=== PATIENT | male | born 1975 | race Caucasian/White ===

== ENCOUNTER 2020-02-24 06:12 | Inpatient (IN) ==
--- NOTE | 2020-02-06 16:14 | PAT Medication Instructions ---
Medication Instructions Date of Service February 06, 2020 Home Medications Medication Instructions Recorded rizatriptan 10 mg tablet 10 mg PO .COMPLEX #10 tab 12/15/18 rizatriptan 10 mg tablet 10 mg PO .COMPLEX ibuprofen 600 mg PO BID PRN ASK your surgeon for instructions ibuprofen 600 mg PO BID PRN Take morning of surgery With a small sip of water, OTHERWISE NOTHING TO EAT OR DRINK AFTER MIDNIGHT: rizatriptan 10 mg tablet 10 mg PO .COMPLEX (if needed) Other Notes If you have any questions please call us at [phone] or [phone] or [phone] or [phone]
--- NOTE | 2020-02-09 09:41 | Anesthesiology Consultation ---
Date of Service February 09, 2020 Assessment & Plan (1) Encounter for pre-operative examination: Per PAT assessment on 02/08: Travel screen- Lives in [facility]. Travel to [facility]. No known COVID-19 positive contacts. No current COVID-19 related symptoms. Patient scheduled for preop protocol COVID-19 testing 02/19 ([address]). Awaiting results. Chart Review Chart Review: Acceptable Risk for Surgery (pending surgeon-ordered PCP clearance scheduled 02/12 ([facility])) and Patient seen in Pre Admission Testing Teaching & Discussion Pre-Anesthesia Teaching/Discussion Notes: Instructed NPO after midnight before surgery,except medications with 15 cc of water. Medication instructions provided according to the PAT guidelines. History Surgery Operation Date: 02/24/20 07:45 Proposed Procedures p L5-S1 Decompression and Fusion, Spinal Cord Monitoring - Robbie Padilla DO Height/Weight Height: 6 ft Weight: 76.7 kg Allergies Allergy/AdvReac Type Severity Reaction Status Date / Time No Known Allergies Allergy Verified 02/02/20 08:32 Medications Home Medications Medication Instructions Recorded Confirmed Last Taken rizatriptan 10 mg tablet 10 mg PO .COMPLEX #10 tab 12/15/18 02/02/20 Unknown ibuprofen 600 mg PO BID PRN 02/02/20 02/02/20 Unknown Past Medical History Medical History Degenerative disc disease History of anxiety Migraine Exercise / Class Metabolic Activity II 4-5 Yardwork/Stairs/Walk up hill Past Family History Family History Grandmother Heart disease Denies family history of Ovarian cancer Prostate cancer Myocardial infarction Breast cancer Colorectal cancer Past Surgical History Surgical History H/O discectomy LUMBAR SPINE Hx of vasectomy S/P meniscectomy RT/LEFT [place] teeth removed Past Anesthesia History No Hx of Anesthesia Complications (except PONV with remote surgery) and No Family Hx of Anesthesia Complications History of PONV No Hx of Motion Sickness and History of PONV (x1 episode with remote surgery) Social History Smoking Status: Former smoker tobacco type: cigarettes Do You Dip or Chew Tobacco: No Smoking End Date: 1999 (SMOKED IN COLLEGE) Hx Alcohol Use: Yes Alcohol type: beer alcohol intake frequency: a few times a month Hx Substance Use: No Review of Systems Patient denies chest pain, shortness of breath, dyspnea on exertion, fever, chills, cough, wheezing, palpitations. Physical Exam Vital Signs VITALS BP 127/90 P 69 TEMP 98.4 SP02 100%RA RESP 16 PHYSICAL Full neck and c-spine range of motion. Full TMJ range of motion. TMD 3.5 finger breaths Mallampati Score 1 Dentition: intact, + crown on molar Lungs: clear throughout to auscultation Cardiac: regular rate and rhythm, no murmurs noted Spine: normal Carotid arteries: negative bruit Extremities: no edema Short, thick colbert- advised to trim (patient agreeable) Testing Laboratory Results 02/09/20 10:03 02/09/20 10:03 PT 10.6 Seconds (9.0-12.0) 02/09/20 10:03 INR 1.0 (0.9-1.1) 02/09/20 10:03 APTT 27.9 Seconds (21.0-31.0) 02/09/20 10:03 Urine Color Yellow 02/09/20 10:03 Urine Appearance Clear (Clear) 02/09/20 10:03 Urine pH 7.5 (4.5-7.5) 02/09/20 10:03 Ur Specific [place] 1.006 (1.000-1.030) 02/09/20 10:03 Urine Protein Negative (Negative) 02/09/20 10:03 Urine Glucose (UA) Negative (Negative) 02/09/20 10:03 Urine Ketones Negative (Negative) 02/09/20 10:03 Urine Nitrite Negative (Negative) 02/09/20 10:03 Ur Leukocyte Esterase Negative (Negative) 02/09/20 10:03 Blood Type O Positive 02/09/20 10:03 Antibody Screen NEGATIVE 02/09/20 10:03 Electrocardiogram Date: 02/09/20 SB at 59bpm. Possible LAE. unconfirmed report* Chest X-Ray Date: 02/09/20 Findings: + NAD
[2020-02-09 10:21] LABS: Basophils # (auto) 0.01 K/uL (0-0.2); Basophils % (auto) 0.2 %; Eosinophils # (auto) 0.09 K/uL (0-0.5); Eosinophils % (auto) 1.8 %; Hematocrit (blood only) 44.5 % (42-52); Hemoglobin 15.1 g/dL (14.0-18.0); Immature Granulocytes # (auto) 0.02 K/uL (0.00-0.02); Immature Granulocytes % (auto) 0.4 %; Lymphocytes # (auto) 1.02 K/uL (1.2-3.4); Lymphocytes % (auto) 20.5 %; Mean Corpuscular Hgb Conc 33.9 g/dL (32-36); Mean Corpuscular Volume 91.4 fL (80-100); Mean Platelet Volume 9.9 fL (7.4-10.4); Monocytes # (auto) 0.67 K/uL (0.11-0.59); Monocytes % (auto) 13.5 %; Neutrophils # (auto) 3.16 K/uL (1.4-6.5); Neutrophils % (auto) 63.6 %; Platelet Count 261 K/uL (130-400); RDW Coefficient of Variation 12.1 % (11.5-14.5); RDW Standard Deviation 40.8 fL (36.4-46.3); Red Blood Count 4.87 M/uL (4.7-6.1); White Blood Count 4.97 K/uL (4.8-10.8)
[2020-02-09 10:26] LABS: Appearance Urine Clear (Clear); Bilirubin Urine Negative (Negative); Blood Urine Negative (Negative); Color Urine Yellow; Glucose Urine UA Negative (Negative); Ketones Urine Negative (Negative); Leukocyte Esterase Urine Negative (Negative); Nitrite Urine Negative (Negative); Protein Urine Negative (Negative); Specific Gravity Urine 1.006 (1.000-1.030); Urobilinogen Urine Negative (Negative); pH Urine 7.5 (4.5-7.5)
[2020-02-09 10:35] LABS: Partial Thromboplastin Time 27.9 Seconds (21.0-31.0); Prothrombin Time 10.6 Seconds (9.0-12.0)
--- NOTE | 2020-02-09 10:51 | XRay Report ---
XR chest Pre-admission PA/Lat CLINICAL HISTORY: Preoperative chest COMPARISON STUDY: No previous studies for comparison. FINDINGS: The cardiac and mediastinal contours are normal. There is no evidence of focal pulmonary co nsolidation. There is no evidence of failure. No pleural effusions are visualized.[ IMPRESSION: No active disease in the chest. ACT 112: Negative or not required by law. Electronically signed by: Иван Webb M.D. 02/09/2020 10:49 AM
[2020-02-09 12:12] LABS: BUN Creatinine Ratio 9.1 (10-20); Calcium 9.3 mg/dl (8.5-10.1); Creatinine Clr Calc Pharmacy 105.4 ml/min; Est GFR (Non-African American) 94.1; Potassium 4.6 mmol/L (3.5-5.1)
--- NOTE | 2020-02-10 05:33 | Electrocardiogram Report ---
Test Reason : Blood Pressure : / mmHG Vent. Rate : 059 BPM Atrial Rate : 059 BPM P-R Int : 174 ms QRS Dur : 082 ms QT Int : 420 ms P-R-T Axes : 073 058 058 degrees QTc Int : 415 ms Sinus bradycardia Possible Left atrial enlargement Borderline ECG No previous ECGs available Confirmed by Pietro King ([id number]) on 02/10/2020 5:32:44 AM Referred By: Robbie Padilla Confirmed By:Pietro King
[~2020-02-24 06:12] MED LIST: ACETAMINOPHEN 500 MG TAB PO SCH; CEFAZOLIN 1000MG 1,000 MG/7.5 ML SYR IV SCH; CeleBREX 200 MG CAP PO SCH; GABAPENTIN 900 MG DOSE PO SCH; LR 15ML/HR IV SCH
[2020-02-24] MEDS ORDERED: ONDANSETRON INJ 2 MG/ML 2 ML VIAL ONE (06:56)
[2020-02-24] MEDS ORDERED: PROPOFOL IV EMULSION 10 MG/ML 20 ML VIAL IV ONE ×2 (06:56→08:49)
[2020-02-24] MEDS ORDERED: DEXAMETHASONE SOD INJ 4 MG/ML VIAL ONE (06:56)
[2020-02-24] MEDS ORDERED: LIDOCAINE HCL 2% 2 ML VIAL/AMP(20MG/ML) INFIL ONE (06:56)
[2020-02-24] MEDS ORDERED: fentaNYL citrate 100 MCG/2 ML VIAL ONE (06:57)
[2020-02-24] MEDS ORDERED: MIDAZOLAM HCL 1 MG/ML 2ML VIAL ONE (06:57)
[2020-02-24] MEDS ORDERED: ROCURONIUM BROMIDE 10 MG/ML 5 ML VIAL IV ONE (06:59)
[2020-02-24] MEDS ORDERED: LARYING-O-JET KIT (LTA) ONE (07:03)
[2020-02-24] MEDS ORDERED: fentaNYL citrate 100 MCG/2 ML VIAL IV PRN (07:05)
[2020-02-24] MEDS ORDERED: ATROPINE SULFATE 0.1 MG/ML 10ML SYR IV PRN (07:05)
[2020-02-24] MEDS ORDERED: ePHEDrine sulfate 50 MG/ML AMP IV PRN (07:05)
[2020-02-24] MEDS ORDERED: ONDANSETRON INJ 2 MG/ML 2 ML VIAL IV PRN ×2 (07:05→10:40)
[2020-02-24] MEDS ORDERED: BACITRACIN INJ 50,000 UNIT VIAL ONE (07:07)
[2020-02-24] MEDS ORDERED: BUPIVACAINE/EPINEPHRINE 0.25% 1:200,000 30 ML VIAL ONE (07:07)
[2020-02-24] MEDS ORDERED: HYDROmorphone INJ 2 MG/ML SYR/VIAL ONE (07:19)
--- NOTE | 2020-02-24 07:25 | History & Physical Bridge Note ---
Date of Service February 24, 2020 History & Physical Bridge Note I have examined the patient, reviewed the History & Physical and in the interval since the performance of the History & Physical I have noted the following changes of clinical significance: no changes noted
--- NOTE | 2020-02-24 07:26 | History & Physical Report ---
Date of Service February 24, 2020 Assessment & Plan (1) Neurogenic claudication due to lumbar spinal stenosis: Admission and Anticipated Discharge Date Admission Date: L5-S1 decompression fusion History of Present Illness Chief Complaint: Back and leg pain Primary Care Provider: Sukh Maddox DO This is a 44-year-old male who presents with persistent back and leg pain after failing course of nonoperative care is here for surgical invention. Allergies Allergy/AdvReac Type Severity Reaction Status Date / Time No Known Allergies Allergy Verified 02/24/20 06:35 Home Medications Home Medications Medication Instructions Recorded Confirmed Type rizatriptan 10 mg tablet 10 mg PO .COMPLEX #10 tab 12/15/18 02/24/20 Rx ibuprofen 600 mg PO BID PRN 02/02/20 02/24/20 History Past Med/Surg History Medical History Degenerative disc disease History of anxiety Migraine Surgical History H/O discectomy LUMBAR SPINE Hx of vasectomy S/P meniscectomy RT/LEFT [place] teeth removed Family History Grandmother Heart disease Denies family history of Ovarian cancer Prostate cancer Myocardial infarction Breast cancer Colorectal cancer Social History Smoking Status: Former smoker Age Started Using Tobacco: 19; Age Quit Using Tobacco: 21; Smoking End Date: 1999 (SMOKED IN COLLEGE); Second Hand Exposure: No; Do You Dip or Chew Tobacco: No; Tobacco Cessation Education Requested by Patient: No Hx Alcohol Use: Yes Alcohol type: beer Hx Substance Use: No Preferred Language: Citizen Of [place] Visual Impairment: No Limitations Hearing Ability: Normal Sole Cementer Required: No Beliefs That Will Affect Care: None marital status: Current Living Situation: Spouse and Family current occupational status: employed 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 Lungs clear to auscultation. Results & Data ([facility]) Vital Signs (Past 12 Hours) Vital Signs Temp Pulse Resp BP Pulse Ox 02/24/20 06:29 36.6 C 87 16 136/93 100
[2020-02-24] MEDS ORDERED: CEFAZOLIN 250 MG/ML 1 GM VIAL ONE (08:01)
[2020-02-24] MEDS ORDERED: FLOSEAL HEMOSTATIC MATRIX 10ML TOP ONE (09:07)
[2020-02-24] MEDS ORDERED: KETOROLAC 30 MG/ML VIAL ONE (09:17)
--- NOTE | 2020-02-24 09:17 | Operative Report ---
Post Operative Report Pre & Post Diagnosis Operation Date: 02/24/20 07:45 Pre-Op Diagnosis: Recurrent disc herniation L5-S1 Post-Op Diagnosis: Same I identified the patient and participated in the time-out.: Yes Procedure Operation Date: 02/24/20 07:45 Actual Procedures #1 revision decompression with medial facetectomies and foraminotomies L5-S1. #2 posterior spinal fusion L5-S1. #3 placed posterior instrumentation L5-S1. #4 interbody fusion L5-S1. #5 placed a peek cage 13 x 26 mm at L5-S1 peer #6 placement locally harvested morselized autograft in the posterior gutters. #7 placement infuse collagen sponge, master graft in the posterior lateral gutters and osteopathic space. Surgeon Robbie Padilla, Infection Preventionist Quinn Curtis Estimated Blood Loss 100 Findings Consistent with Post-Op Diagnosis Specimens None Indications This is a 44-year-old male who presents with the above-mentioned diagnosis after failing course of nonoperative care is here for surgical intervention. Description of Procedure Patient was met with identified informed consent obtained. Patient was then taken to the operative suite underwent an patient placed in a prone position the Constantino table on top of the Carlton frame. All bony prominences well-padded eyes inspected to ensure no external pressure placed upon them. This point the lumbar spine was prepped and draped in a sterile fashion. Sharp dissection with assistance of Bovie cartilage form down to and exposing the remaining lamina and transverse processes of L5 and the sacral ala bilaterally. From a caudal to cephalad fashion revision complete laminectomy of L5 was performed including medial facetectomy foraminotomy right. Did identify evidence of herniated disc on the right. They removed in their entirety. Pedicle screws were then placed in L5 and S1 levels bilaterally systems of fluoroscopy and the proper sized solis placed. By way of a transforaminal approach on the right complete discectomy was performed endplates curetted to subcortical any bone and a 13 x 26 mm peek cage filled with osteo-bone graft tapped in position. The rods were then locked in final position bilaterally. The transverse processes of L5 and the sacral ala burred to subcortical bleeding bone. Infuse collagen sponge master graft local autograft was placed in the posterior gutters. 15 round MAYELIN drain inserted. The incision was then closed with 1 Vicryl in the fascia 2-0 Vicryl subcutaneously and 4 Monocryl for final skin closure. Steri-Strip sterile dressings placed. Patient will continue PACU stable condition. Please note spinal cord monitoring was utilized that the procedure no changes noted. Lastly Quinn morales was present throughout the entire surgery involved the patient positioning complex portions of the surgery and final skin closure. I attest to the content of the Intraoperative Record and any orders documented therein. Any exceptions are noted below.
--- NOTE | 2020-02-24 09:33 | Fluoroscopy Report ---
FL lumbar spine 2-3V CLINICAL HISTORY: L5-S1 DECOMPRESSION AND FUSION COMPARISON STUDY: None. FLUOROSCOPY TIME: 21 seconds. FLUOROSCOPIC IMAGES: 2 FINDINGS: Fluoroscopy was provided for L5-S1 discectomy with interbody spacer placement. Posterior de compression with bilateral pedicle screws at the L5 and S1 levels are noted. Linear radiodensities pr oject over the canal at the L5-S1 level are noted. This was discussed with the surgeon. These were re moved following fluoroscopy. IMPRESSION: Fluoroscopy provided for L5-S1 discectomy, posterior decompression and bilateral pedicle screw fusion. ACT 112: Negative or not required by law. Electronically signed by: Kory Westbrook M.D. 02/24/2020 9:32 AM
--- NOTE | 2020-02-24 10:20 | Anesthesiology Progress Note ---
Date of Service February 24, 2020 Anesthesia Post Procedure Vital Signs Vital Signs: Temp Pulse Pulse Resp BP Pulse Ox 02/24/20 10:15 97.2 F L 50 L 10 L 106/68 100 02/24/20 10:05 62 14 101/66 100 02/24/20 09:54 68 16 113/71 100 02/24/20 09:37 97.7 F 84 16 110/66 100 02/24/20 06:29 97.9 F 87 16 136/93 100 Pain Intensity Lower Back: Pain Intensity: 2 Transfer of Care Handoff Completed per policy Notes Mental Status: alert / awake / arousable and participated in evaluation Patient Amnestic to Procedure: Yes Nausea / Vomiting: adequately controlled Pain: adequately controlled Airway Patency, RR, SpO2: stable & adequate BP & HR: stable & adequate Hydration State: stable & adequate Anesthetic Complications: no major complications apparent and Pt Satisfied with anesthetic care
[2020-02-24] MEDS ORDERED: DO NOT ADMINISTER PNEUMOCOCCAL VACCINE PRN (10:40)
[2020-02-24] MEDS ORDERED: ACETAMINOPHEN 1,000 MG/100 ML VIAL IV PRN (10:40)
[2020-02-24] MEDS ORDERED: NALOXONE HCL 0.4 MG/1 ML VIAL/CARP IV PRN (10:40)
[2020-02-24] MEDS ORDERED: ALUMINUM/MAGNESIUM SUSP 30 ML UDC PO PRN (10:40)
[2020-02-24] MEDS ORDERED: HYDROmorphone INJ 1 MG/ML SYRINGE IV PRN (10:40)
[2020-02-24] MEDS ORDERED: LORazepam 0.5 MG/1 ML VIAL IV PRN (10:40)
[2020-02-24] MEDS ORDERED: RIZATRIPTAN BENZOATE 10 MG TAB PO PRN (10:40)
[2020-02-24] MEDS ORDERED: LORazepam 0.5 MG TAB PO PRN (10:40)
[2020-02-24] MEDS ORDERED: TRAMADOL HCL 50 MG TABLET PO PRN (10:40)
[2020-02-24] MEDS ORDERED: ONDANSETRON 4 MG OD TAB PO PRN (10:40)
[2020-02-24] MEDS ORDERED: METOCLOPRAMIDE HCL INJ 5 MG/ML 2 ML VIAL IV PRN (10:40)
[2020-02-24] MEDS ORDERED: FAMOTIDINE 20 MG TAB PO PRN (10:40)
[2020-02-24] MEDS ORDERED: bisacodyL 10 MG SUPP PR PRN (10:40)
[2020-02-24] MEDS ORDERED: SOD PHOSPHATE/SOD BIPHOSPHATE ENEMA 132 ML BTL PR PRN (10:40)
[2020-02-24] MEDS ORDERED: DO NOT ADMINISTER FLU VACCINE PRN (10:40)
[2020-02-24] MEDS ORDERED: ACETAMINOPHEN 500 MG TAB PO PRN (10:40)
[2020-02-24] MEDS ORDERED: PROMETHAZINE HCL 12.5 MG in SODIUM CHLORIDE 0.9% 50 ML IV PRN (10:40)
[2020-02-24] MEDS ORDERED: HYDROmorphone INJ 0.5 MG/0.5 ML SYR IV PRN (10:40)
[2020-02-24] MEDS ORDERED: MAGNESIUM HYDROXIDE SUSP 30 ML UDC PO PRN (10:40)
[2020-02-24] MEDS: OXYCODONE HCL IR 5 MG TAB (IMMEDIATE RELEASE) PO PRN ×3 (11:16→22:44)
[2020-02-24] MEDS: LACTATED RINGER'S 1,000 ML IV SCH ×3 (11:17→23:46)
[2020-02-24] MEDS: CEFAZOLIN 2000MG 2,000 MG/15 ML SYR IV SCH ×2 (18:25→23:46)
[2020-02-24] MEDS: DOCUSATE SODIUM/SENNA 50/8.6MG TAB PO SCH (20:12)
[2020-02-24] MEDS ORDERED: COUGH DROP (SUGAR FREE) LOZ 24 LOZ/1 BOX BUCCAL ONE (21:53)
[2020-02-25] MEDS: POLYETHYLENE (MIRALAX) 17 GM PACK PO SCH ×4 (05:04→23:22)
[2020-02-25] MEDS: OXYCODONE HCL IR 5 MG TAB (IMMEDIATE RELEASE) PO PRN ×4 (05:04→20:07)
[2020-02-25 05:48] LABS: Basophils # (auto) 0.01 K/uL (0-0.2); Basophils % (auto) 0.1 %; Eosinophils # (auto) 0.03 K/uL (0-0.5); Eosinophils % (auto) 0.3 %; Hematocrit (blood only) 34.7 % (42-52); Immature Granulocytes # (auto) 0.02 K/uL (0.00-0.02); Immature Granulocytes % (auto) 0.2 %; Lymphocytes # (auto) 1.03 K/uL (1.2-3.4); Lymphocytes % (auto) 10.5 %; Mean Corpuscular Hemoglobin 31.3 pg (25-34); Mean Corpuscular Hgb Conc 34.6 g/dL (32-36); Mean Corpuscular Volume 90.4 fL (80-100); Mean Platelet Volume 9.7 fL (7.4-10.4); Monocytes # (auto) 0.94 K/uL (0.11-0.59); Monocytes % (auto) 9.6 %; Neutrophils % (auto) 79.3 %; Platelet Count 214 K/uL (130-400); RDW Standard Deviation 39.5 fL (36.4-46.3); Red Blood Count 3.84 M/uL (4.7-6.1); White Blood Count 9.83 K/uL (4.8-10.8)
[2020-02-25 06:21] LABS: Calcium 8.4 mg/dl (8.5-10.1); Creatinine Clr Calc Pharmacy 123.7 ml/min; Est GFR (African American) 126.2; Est GFR (Non-African American) 108.9; Potassium 3.6 mmol/L (3.5-5.1)
--- NOTE | 2020-02-25 08:12 | Orthopedic Progress Note ---
Date of Service February 25, 2020 Assessment & Plan (1) Neurogenic claudication due to lumbar spinal stenosis: Patient will start with physical therapy today. Continue with bowel regimen. Continue with DVT prophylaxis in the form of teds and SCDs. We will maintain MAYELIN drain. Continue with current pain control regimen. Anticipate discharge home within the next 24 to 48 hours. Admission and Anticipated Discharge Date Admission Date: February 24, 2020 Supervising Physician Co-Signing Physician Notes Dr. Robbie Padilla Subjective Patient is postoperative day 1 posterior spinal fusion L5-S1. He is doing great. Reports leg pain is greatly improved. Back pain is controlled. MAYELIN drain output last shift was 50 cc. H&H is morning are 12.0 and 34.7 respectively. No other complaints. Review of Systems Review of Systems: All systems reviewed & are unremarkable except as noted in HPI & below Physical Exam Physical Exam: Patient is lying in bed. He is in no acute distress. He is alert and oriented x3. Calf soft nontender bilaterally. Strength is intact bilateral lower extremities. Lumbar dressing is clean dry and intact. Constitutional: WD/WN, vitals as above Eyes: normal visual melendrez by confrontation Neck: normal visual inspection Respiratory: normal respiratory effort Cardiovascular: Vessels: dorsalis pedis pulses present Extremities: normal capillary refill Chest (Breasts): Chest: normal inspection of chest Gastrointestinal (Abdomen): Inspection/Auscultation: abdomen normal to inspection Musculoskeletal: Extremities: strength 5/5 throughout Skin: no rashes, warm and dry Neurologic: normal touch/pain/proprioception and moves all extremities Psychiatric: A+Ox3, euthymic affect Results & Data ([facility]) Vital Signs (Past 12 Hours) Vital Signs Temp Pulse Resp BP Pulse Ox 02/25/20 07:12 36.7 C 72 14 100/65 100 02/25/20 04:00 36.8 C 63 14 99/63 L 99 02/24/20 22:59 36.7 C 59 L 14 99/66 L 100 02/24/20 20:11 36.6 C 65 16 95/59 L 99
[2020-02-25] MEDS: DOCUSATE SODIUM/SENNA 50/8.6MG TAB PO SCH (20:07)
[2020-02-26] MEDS: OXYCODONE HCL IR 5 MG TAB (IMMEDIATE RELEASE) PO PRN ×2 (05:30→11:06)
[2020-02-26] MEDS: POLYETHYLENE (MIRALAX) 17 GM PACK PO SCH ×2 (05:32→11:06)
--- NOTE | 2020-02-26 08:55 | Orthopedic Progress Note ---
Date of Service February 26, 2020 Assessment & Plan (1) Neurogenic claudication due to lumbar spinal stenosis: We will continue with DVT prophylaxis. Continue with pain control. Anticipate discharge home today or tomorrow. All questions have been answered in detail. Admission and Anticipated Discharge Date Admission Date: February 24, 2020 Supervising Physician Co-Signing Physician Notes Dr. Robbie Padilla Subjective Patient is postoperative day 2. He is doing well. Has a bit more back pain today. Denies leg pain. MAYELIN drain output is 40 cc. He is ambulating over 300 feet in physical therapy yesterday. He is also ambulate in the hallways. He has had an uneventful night. Review of Systems Review of Systems: All systems reviewed & are unremarkable except as noted in HPI & below Physical Exam Physical Exam: Patient is lying in bed. He is in no acute distress. He is alert and oriented x3. Calf soft nontender bilaterally. Strength is intact bilateral lower extremities. Lumbar dressing is clean dry and intact. Constitutional: WD/WN, vitals as above Eyes: normal visual melendrez by confrontation Neck: normal visual inspection Respiratory: normal respiratory effort Cardiovascular: Vessels: dorsalis pedis pulses present Extremities: normal capillary refill Chest (Breasts): Chest: normal inspection of chest Gastrointestinal (Abdomen): Inspection/Auscultation: abdomen normal to inspection Musculoskeletal: Extremities: strength 5/5 throughout Skin: no rashes, warm and dry Neurologic: normal touch/pain/proprioception and moves all extremities Psychiatric: A+Ox3, euthymic affect Results & Data ([facility]) Vital Signs (Past 12 Hours) Vital Signs Temp Pulse Resp BP Pulse Ox 02/26/20 07:54 36.8 C 70 16 144/93 H 99 02/26/20 07:19 37.0 C 66 14 105/70 98 02/25/20 22:49 37.0 C 66 14 105/70 98
--- NOTE | 2020-03-02 11:49 | Discharge Summary ---
Date of Service March 02, 2020 Admission HPI Per Admitting Provider This is a 44-year-old male who presents with persistent back and leg pain after failing course of nonoperative care is here for surgical invention. Discharge Data Consultations 02/24/20 10:40 Consult Case Management - Discharge Planning Routine Procedures Performed Operation Date: 02/24/20 07:45 Actual Procedures p L5-S1 Decompression and Fusion, Spinal Cord Monitoring, Placement of Interbody, Application of Bone Morphogenetic Protein and Allograft - Robbie Padilla DO Hospital Course (1) Neurogenic claudication due to lumbar spinal stenosis: Patient is a 44-year-old male history physical examination radiographic images consistent with the above-mentioned diagnosis. For this reason is brought to the operating room underwent a lumbar decompression and instrumented fusion. This performed by Dr. Padilla under general anesthesia. Left the operating room with a MAYELIN drain in place was transferred to PACU in stable condition. He was then transferred to the orthopedic floor. He was seen by physical therapy postop day #1. Throughout his hospital course Remained supple nontender his dressing and clean dry and intact. On postop day #2 the patient was deemed safe for home discharge. His discharge instructions were to avoid any full bending or lifting. He should not lift anything heavier than 5 to 7 pounds[address] He should not drive a motor vehicle. He is to change dressing once daily till is dry once dry he may begin showering. We will see him in follow-up in approximately 2 weeks or sooner if he develops any fevers chills or drainage from the incision.
== END 2020-02-26 15:59 | disposition home or self-care (01) | DRG 455 ==
LOC: ASU 06:12 → 3E 09:44